=== PATIENT | female | born 1985 | race American Indian/Alaskan Native ===

== ENCOUNTER 2017-05-20 19:16 | Outpatient (CLI) | payer BC, MEDICAID ==
[2017-05-20 19:40] VITALS: BP 111/65
== END 2017-05-20 20:13 | disposition home or self-care (01) ==
LOC: TRG 19:16
PROVIDERS: ATTEND Obstetrics & Gynecology
DX: O47.1 False labor at or after 37 completed weeks of gestation (principal); Z3A.38 38 weeks gestation of pregnancy

== ENCOUNTER 2017-06-02 19:49 | Outpatient (CLI) | payer BC, MEDICAID ==
[2017-06-02] MEDS ORDERED: VISTARIL PO ONE (21:25)
== END 2017-06-02 22:01 | disposition home or self-care (01) ==
LOC: TRG 19:49
PROVIDERS: ATTEND Obstetrics & Gynecology
DX: O48.0 Post-term pregnancy (principal); Z3A.40 40 weeks gestation of pregnancy
CPT/HCPCS: Q0177

== ENCOUNTER 2017-06-03 04:29 | Inpatient (IN) | payer BC, MEDICAID ==
[2017-06-03] MEDS ORDERED: PITOCin/NS 20 UNIT/1000ML DRIP 20,000 MILLIUNITS/1,000 ML BAG IV ONE (05:13)
[2017-06-03] MEDS ORDERED: SUBLIMAZE IV PRN (05:33)
[2017-06-03] MEDS ORDERED: STADOL IV PRN ×2 (05:33→05:57)
[2017-06-03] MEDS ORDERED: NARCAN 0.4 MG/1 ML IV PRN (05:33)
[2017-06-03] MEDS ORDERED: PHENERGAN PO PRN ×2 (05:33→05:37)
[2017-06-03] MEDS ORDERED: MINERAL OIL PO PRN (05:33)
[2017-06-03] MEDS ORDERED: XYLOCAINE 2% INFILTRATI ONE (05:33)
[2017-06-03] MEDS ORDERED: BRETHINE IVP PRN (05:33)
[2017-06-03] MEDS ORDERED: ePHEDrine SULFATE IV PRN (05:33)
[2017-06-03] MEDS ORDERED: BRETHINE SUB-Q PRN (05:33)
[2017-06-03] MEDS ORDERED: SUBLIMAZE ONE (05:35)
[2017-06-03] MEDS ORDERED: LANSINOH TP PRN (05:37)
[2017-06-03] MEDS ORDERED: TUCKS PAD TP PRN (05:37)
[2017-06-03] MEDS ORDERED: DULCOLAX PR PRN (05:37)
[2017-06-03] MEDS ORDERED: PERCOCET 5/325 PO PRN (05:37)
[2017-06-03] MEDS ORDERED: BENADRYL PO PRN (05:37)
[2017-06-03] MEDS ORDERED: ZOFRAN IV PRN (05:37)
[2017-06-03] MEDS ORDERED: PHENERGAN PR PRN (05:37)
[2017-06-03] MEDS ORDERED: TYLENOL PO PRN (05:37)
[2017-06-03] MEDS ORDERED: MILK OF MAGNESIA PO PRN (05:37)
--- NOTE | 2017-06-03 05:45 | History and Physical Report ---
History of Present Illness Date of examination: 06/03/17 Date of admission: 06/03/17 04:39 Chief complaint: contractions History of present illness: 32 yo at 40 weeks came in complaining of contractions. She was noted to be 7 cm and admitted for active labor. She is a patient of [facility] starting her care late at 21 weeks. She had issue of glucose intolerance but 3hr gtt normal. Past History Past Medical History: other (hemorrhoidectomy) Past Surgical History: other (LEEP and hemorrhoidectomy ) [employer] History: chlamydia, herpes, trichomonas Family/Genetic History: heart disease, hypertension, stroke Social history: single. denies: smoking, alcohol abuse, prescription drug abuse - Obstetrical History Expected Date of Delivery: 06/02/17 Actual Gestation: 40 Week(s) 1 Day(s) : 3 Para: 2 Hx # Term Pregnancies: 0 Number of Pregnancies: 0 Spontaneous Abortions: 0 Induced : 0 Number of Living Children: 2 Medications and Allergies Allergies Allergy/AdvReac Type Severity Reaction Status Date / Time No Known Allergies Allergy Verified 11/12/13 06:41 Home Medications Medication Instructions Recorded Confirmed Last Taken Type Cyclobenzaprine [Flexeril 10mg] 10 mg PO TID PRN #30 tablet 05/31/14 Unknown Rx HYDROcodone/APAP 5-325 [[place] 2 each PO Q6H PRN #30 tablet 05/31/14 Unknown Rx 5-325 mg TAB] Ibuprofen [Motrin 600 MG tab] 600 mg PO Q6H #30 tablet 05/31/14 Unknown Rx Active Meds: Active Medications Butorphanol Tartrate (Stadol) 2 mg IV Q2H PRN PRN Reason: Pain , Severe (7-10) Ephedrine Sulfate (Ephedrine Sulfate) 10 mg IV Q2M PRN PRN Reason: Hypotension Stop: 06/03/17 05:38 Fentanyl (Sublimaze) 100 mcg IV Q2H PRN PRN Reason: Labor Pain Lactated Ringer's (Lactated Ringers) 1,000 mls @ 125 mls/hr IV DIRECT LEELA Oxytocin/Sodium Chloride (Pitocin/Ns 20 Unit/1000ml Drip) 20 units in 1,000 mls @ 125 mls/hr IV DIRECT LEELA Oxytocin/Sodium Chloride (Pitocin/Ns 30 Unit/500ml) 30 units in 500 mls @ 0 mls /hr IV TITR LEELA; As Directed PRN Reason: Protocol Oxytocin/Sodium Chloride (Pitocin/Ns 30 Unit/500ml) 30 units in 500 mls @ 1 mls /hr IV TITR LEELA; 1 MILLIUNITS/MIN PRN Reason: Protocol Lidocaine (Xylocaine 2%) 20 ml INFILTRATI ONCE ONE Stop: 06/03/17 05:34 Mineral Oil (Mineral Oil) 30 ml PO QHS PRN PRN Reason: Constipation Naloxone HCl (Narcan 0.4 Mg/1 Ml) 0.1 mg IV Q2MIN PRN PRN Reason: Res Rate </= 8 or 02 SAT < 92% Promethazine HCl (Phenergan) 25 mg PO Q6H PRN PRN Reason: Nausea And Vomiting Terbutaline Sulfate (Brethine) 0.25 mg SUB-Q ONCE PRN PRN Reason: Hyperstimulation/Hypertonicity Stop: 06/03/17 05:34 Terbutaline Sulfate (Brethine) 0.25 mg IVP ONCE PRN PRN Reason: Hyperstimulation/Hypertonicity Stop: 06/03/17 05:34 Review of Systems All systems: negative Genitourinary: contractions - Physical Exam Breasts: Positive: normal Cardiovascular: Regular rate, Normal S1 Lungs: Positive: Clear to auscultation, Normal air movement Abdomen: Positive: normal appearance, soft, normal bowel sounds. Negative: distention, tenderness Genitourinary (Female): Positive: normal external genitalia, normal perenium Vulva: both: normal Vagina: Positive: normal moisture Uterus: Positive: normal size Anus/Rectum: Positive: normal perianal skin Extremities: Positive: normal Deep Tendon Reflex Grade: Normal +2 - Obstetrical FHR: category 1 Uterine Contraction Monitor Mode: External Cervical Dilatation: 7 Cervical Effacement Percentage: 100 station: 0 Uterine Contraction Pattern: Regular Uterine Tone Measurement Phase: Contraction Uterine Contraction Intensity: Strong/Firm Results All other labs normal. Assessment and Plan A/P IUP 40 weeks active labor ivf and labs gbs neg no abx required offer epidural expect vaginal delivery
--- NOTE | 2017-06-03 05:54 | Procedure Note ---
OB Delivery Note - Delivery Date of Delivery: 06/03/17 Surgeon: MADI KRAUS Estimated blood loss: other (150cc) - Vaginal Delivery presentation: vertex Delivery position: OA Intrapartum events: precipitous labor- <3hr Delivery induction: none Delivery monitor: external FHT, external uterine Route of delivery: Delivery placenta: spontaneous Delivery cord: 3 umbilical vessels Episiotomy: none Delivery laceration: none Anesthesia: none Delivery comments: Was called at 452am that patient was 7cm. En route notified at 5am that she was c/c/and pushing. Arrived at 521 as placenta delivered. The nurse Ricardo delivered a viable male in OA presentation. Shoulders delivered with ease. Cord was clamped and cut. The baby cried spontaneously. The weightof baby 7 pounds and 3 oz Apgars 9 and 9. EBL 150cc. Patient tolerated procedure well and bonding with baby.
[2017-06-03] MEDS ORDERED: PITOCin/NS 20 UNIT/1000ML DRIP 20 UNITS/1,000 ML BAG IV SCH (06:00)
[2017-06-03] MEDS ORDERED: SENOKOT S PO SCH (06:00)
[2017-06-03] MEDS ORDERED: SODIUM CHLORIDE FLUSH SYRINGE 10 ML IV NR (06:00)
[2017-06-03] MEDS ORDERED: PITOCin/NS 30 UNIT/500ML 30 UNITS/500 ML BAG IV SCH ×2 (06:00)
[2017-06-03] MEDS ORDERED: LACTATED RINGERS 1,000 ML IV SCH (06:00)
[2017-06-03] MEDS: MOTRIN PO SCH ×4 (07:21→23:46)
[2017-06-03 08:14] LABS: Hematocrit 40.6 % (30.3-42.9); Hemoglobin 13.5 gm/dl (10.1-14.3); Mean Corpuscular HGB Conc 33 % (30-34); Mean Corpuscular Hemoglobin 27 pg (28-32); Mean Corpuscular Volume 81 fl (79-97); Platelet Count 161 K/mm3 (140-440); Red Blood Count 5.01 M/mm3 (3.65-5.03); Red Cell Distribution Width 14.1 % (13.2-15.2); White Blood Count 11.8 K/mm3 (4.5-11.0)
[2017-06-03] MEDS: NORCO 5/325 PO PRN ×2 (08:42→18:34)
[2017-06-03] MEDS: PRENATAL VITAMIN PO SCH (11:42)
[2017-06-03] MEDS: COLACE PO SCH ×2 (11:42→21:58)
[2017-06-03] MEDS ORDERED: Fluarix Quad 2017-2018(36 MOS+) IM ONE (12:00)
[2017-06-03 20:17] LABS: Hematocrit 36.3 % (30.3-42.9); Hemoglobin 12.6 gm/dl (10.1-14.3)
[2017-06-04] MEDS ORDERED: M-M-R II VACCINE SUB-Q ONE (06:00)
[2017-06-04] MEDS ORDERED: BOOSTRIX IM ONE (06:00)
[2017-06-04] MEDS: MOTRIN PO SCH ×2 (06:15→11:25)
--- NOTE | 2017-06-04 09:01 | Progress Note ---
Assessment and Plan A: PPD# 1 s/p at term P: Discharge home later today if baby is able to be discharged. Subjective - Subjective Date of service: 06/04/17 Principal diagnosis: s/p at term Interval history: No overnight events. Patient reports: appetite normal, voiding normally, pain well controlled, ambulating normally : doing well Objective - Vital Signs Latest vital signs: Vital Signs Temp Pulse Resp BP BP Pulse Ox 06/04/17 00:58 97.9 F 78 20 99/56 97 06/03/17 17:27 97.8 F 72 18 122/79 100 06/03/17 12:35 97.8 F 79 18 100/60 96 Intake and Output 06/03/17 06/04/17 06/04/17 22:59 06:59 14:59 Intake Total 720 Output Total 300 Balance 420 Intake: Oral 720 Output: Urine 300 Void 300 Other: Total, Intake Amount 240 Total, Output Amount 300 # Voids Void 1 - Exam Breasts: Present: deferred Cardiovascular: Present: Regular rate Lungs: Present: Clear to auscultation Abdomen: Present: soft Uterus: Present: fundal height below umbilicus Extremities: Present: normal
--- NOTE | 2017-06-04 09:04 | Discharge Summary ---
Providers - Providers Date of Admission: 06/03/17 04:39 Date of discharge: 06/04/17 Attending physician: MADI KRAUS MD Primary care physician: MADI KRAUS MD Hospitalization Reason for admission: active labor Delivery: Procedure details: Please see delivery note. Episiotomy: none Laceration: none Other procedures: none complications: none Discharge diagnosis: IUP at term delivered [place] baby: male Hospital course: Pt was admitted in active labor and underwent which she tolerated well. She met discharge criteria on PPD#1. Condition at discharge: Stable Disposition: DC-01 TO HOME OR SELFCARE - Discharge Diagnoses (1) Term of male Status: Acute Plan - Discharge Medications Prescriptions: HYDROcodone/APAP 5-325 [[place] 5/325] 1 each PO Q6HR PRN #30 tablet PRN Reason: Pain Ibuprofen [Motrin] 800 mg PO Q8HR PRN #30 tablet PRN Reason: Pain - Provider Discharge Summary Activity: routine, no sex for 6 weeks, no heavy lifting 4 weeks, no strenuous exercise Diet: routine Instructions: routine Additional instructions: [] Smoking cessation referral if applicable(refer to patient education folder for contact #) [] Refer to [facility]'s [facility] Booklet Call your doctor immediately for: * Fever > 100.5 * Heavy vaginal bleeding ( >1 pad per hour) * Severe persistent headache * Shortness of breath * Reddened, hot, painful area to leg or breast * Drainage or odor from incision. * Keep incision clean and dry at all times and follow doctor's instructions regarding bathing/showering Please schedule your son's circumcision before he is one month old. - Follow up plan Follow up: BRAYAN LOPEZ CNM [Advanced Practice Nurse] - 07/01/17 ( exam- please call for appt )
[2017-06-04] MEDS: PRENATAL VITAMIN PO SCH (11:24)
[2017-06-04] MEDS: COLACE PO SCH (11:24)
[2017-06-04] MEDS: NORCO 5/325 PO PRN (16:27)
[2017-06-04 16:55] VITALS: BP 119/78
[2017-06-04] MEDS ORDERED: Fluarix Quad 2017-2018(36 MOS+) IM ONE (17:00)
== END 2017-06-04 17:00 | disposition home or self-care (01) | DRG 775 ==
LOC: TRG 04:29 → LD 04:39 → TRG 04:39 → OB 08:00
PROVIDERS: ADMIT Obstetrics & Gynecology; ATTEND Obstetrics & Gynecology
PROC: 10E0XZZ Delivery of Products of Conception, External Approach (ICD-10-PCS; principal; 2017-06-03)
PROC: 3E0234Z Introduction of Serum, Toxoid and Vaccine into Muscle, Percutaneous Approach (ICD-10-PCS; 2017-06-03)
DX: O62.3 Precipitate labor (principal); Z3A.40 40 weeks gestation of pregnancy; Z37.0 Single live birth; Z82.49 Family history of ischemic heart disease and other diseases of the circulatory system; Z82.3 Family history of stroke; Z23 Encounter for immunization
CPT/HCPCS: 36415; 85014; 85018; 85027; 86592; 86850; 86900; 86901; 90471; 90686; 90707; 99211; A6250; G0008; G0463; J0595; J2590; J3010

== ENCOUNTER 2022-05-08 08:46 | Emergency (ER) | payer BC, MEDICAID ==
[2022-05-08 08:52] VITALS: BP 135/82
--- NOTE | 2022-05-09 17:32 | Electrocardiograph Report ---
[facility] Test Date: 2022-05-08 Test Time: 08:55:56 Pat Name: BALTAZAR NICKERSON Department: Room: Gender: F Ct Technician: AF : 1985 Requested By: ED DOC Order Number: [id number] Reading MD: Michael Call Measurements Intervals [place] Rate: 87 P: 58 [place]: 181 QRS: 45 QRSD: 85 T: 48 QT: 361 QTc: 434 Interpretive Statements Sinus rhythm No previous ECG available for comparison Electronically Signed On 05-09-2022 17:32:06 EDT by Michael Call
== END 2022-05-09 04:45 | disposition left against medical advice (07) ==
LOC: ED 08:46
DX: R07.89 Other chest pain (principal); R42 Dizziness and giddiness; Z53.21 Procedure and treatment not carried out due to patient leaving prior to being seen by health care provider
CPT/HCPCS: 93005